=== PATIENT | male | born 1975 | race Caucasian/White ===

== ENCOUNTER 2020-12-11 18:17 | Inpatient (IN) | payer MEDICAID, OTHER ==
[~2020-12-11] VITALS: Ht 175.3 cm; Wt 87.7 kg
[2020-12-11 19:05] LABS: BASOPHILS % (AUTO) 0.9 % (0.0-2.0); EOSINOPHILS % (AUTO) 1.7 % (1.0-6.0); HEMATOCRIT 43.7 % (41-53); HEMOGLOBIN 15.4 g/dL (13.5-17.5); LYMPHOCYTES # (AUTO) 1.8 K/uL (1.0-4.8); MEAN CORPUSCULAR HEMOGLOBIN 31.5 pg (26.0-34.0); MEAN CORPUSCULAR HGB CONC 35.3 G/dL (31.0-37.0); MEAN CORPUSCULAR VOLUME 89 fL (80-100); MONOCYTES # (AUTO) 0.6 K/uL (0.1-1.0); MONOCYTES % (AUTO) 8.2 % (2.0-9.0); NEUTROPHILS % (AUTO) 65.2 % (40.0-70.0); PLATELET COUNT (AUTO) 301 K/uL (150-450); RED CELL DISTRIBUTION WIDTH 12.9 % (11.5-14.5)
[2020-12-11 19:16] LABS: ANION GAP 9 mmol/L (8-16); CALCIUM, TOTAL 9.1 mg/dL (8.8-10.5); CARBON DIOXIDE 29 mmol/L (22-29); CHLORIDE 102 mmol/L (98-107); CREATININE 1.22 mg/dL (0.60-1.30); GLOMERULAR FILTR. RATE CALC > 60 mL/min (>60); GLUCOSE,RANDOM 116 mg/dL (70-110); POTASSIUM 3.6 mmol/L (3.5-5.1); SODIUM SERUM 140 mmol/L (136-145); UREA NITROGEN, BLOOD 17 mg/dL (7-18)
[2020-12-11] MEDS ORDERED: OLAN5TAB2 PO (19:21)
[2020-12-11] MEDS ORDERED: CLON0.1T2 PO (19:21)
[2020-12-11] MEDS ORDERED: CITA10TA99 PO (19:21)
[2020-12-11] MEDS ORDERED: HYDR-3831 PO (19:21)
[2020-12-11] MEDS ORDERED: LEVO25TA9 PO (19:21)
[2020-12-11 19:22] LABS: ALANINE AMINOTRANSFERASE 35 U/L (12-78); ALBUMIN 4.3 g/dL (3.4-5.0); ALKALINE PHOSPHATASE 92 U/L (46-116); ASPARTATE AMINOTRANSFERASE 19 U/L (15-37); BILIRUBIN,TOTAL 0.5 mg/dL (0.1-1.0); TOTAL PROTEIN, SERUM 7.3 g/dL (6.4-8.2)
[2020-12-11 20:22] LABS: COVID AG,FIA SOURCE NASOPHARYNGEAL
[2020-12-11] MEDS ORDERED: ZOLPIDEM TARTRATE 10 MG TABLET PO PRN (22:45)
[2020-12-11] MEDS ORDERED: HALOPERIDOL 5 MG TABLET PO PRN (22:45)
[2020-12-12 03:00] VITALS: BP 116/88
[2020-12-12] MEDS: LORazepam 2 MG TABLET PO PRN (03:10)
[2020-12-12] MEDS ORDERED: PNEUMOCOCCAL VACCINE POLYVALENT 0.5 ML VIAL [PPSV23] IM. ONE (04:30)
[2020-12-12 07:47] LABS: CHOL/HDL RATIO 5.3 (4.2-7.3)
[2020-12-12 08:47] VITALS: BP 126/83
[2020-12-12] MEDS ORDERED: MAGNESIUM HYDROXIDE SUSPENSION 30 ML UDCUP PO PRN (10:45)
[2020-12-12] MEDS ORDERED: ONDANSETRON HCL 4 MG TABLET PO PRN (10:45)
[2020-12-12] MEDS ORDERED: GuaiFENesin/D-METHORPHAN [SUGAR-FREE] 200-20MG/10 ML SYRUP UDCUP PO PRN (10:45)
[2020-12-12] MEDS ORDERED: IBUPROFEN 400 MG TABLET PO PRN (10:45)
[2020-12-12] MEDS ORDERED: LOPERAMIDE HCL 2 MG CAPSULE PO PRN (10:45)
[2020-12-12] MEDS ORDERED: ALBUTEROL SULFATE HFA 90 MCG/PUFF 8 GM INHALER IH PRN (10:45)
[2020-12-12] MEDS ORDERED: ACETAMINOPHEN 325 MG TABLET PO PRN (10:45)
[2020-12-12] MEDS ORDERED: NICOTINE 14 MG/24 HOUR PATCH TD PRN (10:45)
[2020-12-12] MEDS ORDERED: PETROLATUM,WHITE 28 GM JELLY TP PRN (10:45)
[2020-12-12] MEDS ORDERED: DOCUSATE SODIUM 100 MG CAPSULE PO PRN (10:45)
[2020-12-12] MEDS ORDERED: CloNIDine HCL 0.1 MG TABLET PO PRN (10:45)
[2020-12-12 16:19] VITALS: BP 133/88
[2020-12-12] MEDS: OLANZapine 5 MG TABLET PO SCH (17:10)
[2020-12-13 00:59] VITALS: BP 125/78
[2020-12-13] MEDS: OLANZapine 5 MG TABLET PO SCH ×2 (08:33→16:27)
[2020-12-13] MEDS: CITALOPRAM HYDROBROMIDE 20 MG TABLET PO SCH (08:33)
[2020-12-13 09:02] VITALS: BP 122/78
[2020-12-13 16:26] VITALS: BP 117/69
[2020-12-14 05:22] VITALS: BP 133/90
[2020-12-14 08:30] VITALS: BP 128/76
[2020-12-14] MEDS: CITALOPRAM HYDROBROMIDE 20 MG TABLET PO SCH (09:13)
[2020-12-14] MEDS: OLANZapine 5 MG TABLET PO SCH ×2 (09:13→16:49)
[2020-12-14 16:10] VITALS: BP 139/71
[2020-12-15 06:03] VITALS: BP 141/98
[2020-12-15 08:56] VITALS: BP 140/81
[2020-12-15] MEDS: OLANZapine 5 MG TABLET PO SCH ×2 (09:06→17:00)
[2020-12-15] MEDS: CITALOPRAM HYDROBROMIDE 20 MG TABLET PO SCH (09:06)
[2020-12-15 16:19] VITALS: BP 135/83
[2020-12-16 00:31] VITALS: BP 128/80
[2020-12-16 09:01] VITALS: BP 140/80
[2020-12-16] MEDS: OLANZapine 5 MG TABLET PO SCH ×2 (09:06→16:34)
[2020-12-16] MEDS: CITALOPRAM HYDROBROMIDE 20 MG TABLET PO SCH (09:06)
[2020-12-16 16:22] VITALS: BP 140/83
[2020-12-17 00:26] VITALS: BP 128/73
[2020-12-17 07:16] LABS: COVID AG,FIA SOURCE NASOPHARYNGEAL
[2020-12-17 08:23] VITALS: BP 136/98
[2020-12-17] MEDS: OLANZapine 5 MG TABLET PO SCH ×2 (08:24→15:55)
[2020-12-17] MEDS: CITALOPRAM HYDROBROMIDE 20 MG TABLET PO SCH (08:24)
[2020-12-17 16:27] VITALS: BP 146/87
[2020-12-17] MEDS: LORazepam 2 MG TABLET PO PRN (19:06)
[2020-12-17] MEDS: MAG HYDROX/AL HYDROX/SIMETH ES 30 ML SUSPENSION UDCUP PO PRN (21:48)
[2020-12-18 06:44] VITALS: BP 113/76
[2020-12-18 08:13] VITALS: BP 130/81
[2020-12-18] MEDS: OLANZapine 5 MG TABLET PO SCH ×2 (08:21→16:16)
[2020-12-18] MEDS: CITALOPRAM HYDROBROMIDE 20 MG TABLET PO SCH (08:21)
[2020-12-18] MEDS ORDERED: CITA-144 PO (14:06)
[2020-12-18] MEDS ORDERED: HYD50 PO (14:06)
[2020-12-18 16:19] VITALS: BP 130/64
[2020-12-18] MEDS: LORazepam 2 MG TABLET PO PRN (17:40)
[2020-12-19 00:42] VITALS: BP 117/62
[2020-12-19 08:12] VITALS: BP 123/74
[2020-12-19] MEDS: OLANZapine 5 MG TABLET PO SCH ×2 (08:15→16:35)
[2020-12-19] MEDS: FOLIC ACID 1 MG TABLET PO SCH (08:15)
[2020-12-19] MEDS: CITALOPRAM HYDROBROMIDE 20 MG TABLET PO SCH (08:15)
[2020-12-19] MEDS: THIAMINE 100 MG TABLET PO SCH (08:15)
[2020-12-19 16:18] VITALS: BP 137/77
[2020-12-19] MEDS: LORazepam 2 MG TABLET PO PRN (17:20)
[2020-12-19] MEDS: MAG HYDROX/AL HYDROX/SIMETH ES 30 ML SUSPENSION UDCUP PO PRN (21:18)
[2020-12-20 01:04] VITALS: BP 124/77
[2020-12-20 08:11] VITALS: BP 127/80
[2020-12-20] MEDS: FOLIC ACID 1 MG TABLET PO SCH (09:14)
[2020-12-20] MEDS: CITALOPRAM HYDROBROMIDE 20 MG TABLET PO SCH (09:14)
[2020-12-20] MEDS: THIAMINE 100 MG TABLET PO SCH (09:14)
[2020-12-20] MEDS: OLANZapine 5 MG TABLET PO SCH ×2 (09:14→16:27)
[2020-12-20 16:27] VITALS: BP 132/73
[2020-12-20] MEDS: LORazepam 2 MG TABLET PO PRN (18:35)
[2020-12-20] MEDS: MAG HYDROX/AL HYDROX/SIMETH ES 30 ML SUSPENSION UDCUP PO PRN (21:52)
[2020-12-21 01:21] VITALS: BP 146/87
[2020-12-21 05:21] VITALS: BP 148/83
[2020-12-21 08:31] VITALS: BP 136/88
[2020-12-21 08:32] LABS: FREE T4 (FREE THYROXINE) 0.67 ng/dL (0.76-1.46); THYROID STIMULATING HORMONE 9.73 uIU/mL (0.36-3.74)
[2020-12-21] MEDS: CITALOPRAM HYDROBROMIDE 20 MG TABLET PO SCH (08:43)
[2020-12-21] MEDS: OLANZapine 5 MG TABLET PO SCH ×2 (08:43→16:41)
[2020-12-21] MEDS: FOLIC ACID 1 MG TABLET PO SCH (08:43)
[2020-12-21] MEDS: THIAMINE 100 MG TABLET PO SCH (08:43)
[2020-12-21 16:10] VITALS: BP 113/65
[2020-12-21] MEDS: LORazepam 2 MG TABLET PO PRN ×2 (16:41→22:13)
[2020-12-21] MEDS: MAG HYDROX/AL HYDROX/SIMETH ES 30 ML SUSPENSION UDCUP PO PRN (23:06)
[2020-12-22 00:55] VITALS: BP 137/91
[2020-12-22 08:22] VITALS: BP 140/79
[2020-12-22] MEDS: THIAMINE 100 MG TABLET PO SCH (09:08)
[2020-12-22] MEDS: CITALOPRAM HYDROBROMIDE 20 MG TABLET PO SCH (09:08)
[2020-12-22] MEDS: OLANZapine 5 MG TABLET PO SCH ×2 (09:08→16:25)
[2020-12-22] MEDS: FOLIC ACID 1 MG TABLET PO SCH (09:08)
[2020-12-22 16:09] VITALS: BP 136/83
[2020-12-22] MEDS ORDERED: ZOLPIDEM TARTRATE 10 MG TABLET PO PRN (17:15)
[2020-12-22] MEDS: LORazepam 2 MG TABLET PO PRN (17:25)
[2020-12-23 00:54] VITALS: BP 128/85
[2020-12-23] MEDS ORDERED: LEVOTHYROXINE SODIUM 75 MCG TABLET PO SCH (06:30)
[2020-12-23 08:06] LABS: COVID AG,FIA SOURCE NASOPHARYNGEAL
[2020-12-23] MEDS: OLANZapine 5 MG TABLET PO SCH (08:23)
[2020-12-23] MEDS: CITALOPRAM HYDROBROMIDE 20 MG TABLET PO SCH (08:24)
[2020-12-23] MEDS: FOLIC ACID 1 MG TABLET PO SCH (08:24)
[2020-12-23] MEDS: THIAMINE 100 MG TABLET PO SCH (08:24)
[2020-12-23 09:17] VITALS: BP 140/80
[2020-12-23] MEDS: LORazepam 2 MG TABLET PO PRN (12:18)
[2020-12-23] MEDS ORDERED: LEVO75 PO (12:30)
[2020-12-23] MEDS ORDERED: OLAN5TAB2 PO (12:30)
== END 2020-12-23 14:04 | disposition home or self-care (01) | DRG 750 ==
LOC: EMS 18:21 → B2S 23:00
PROVIDERS: ADMIT Psychiatry & Neurology Psychiatry; ATTEND Psychiatry & Neurology Psychiatry
DX: F20.9 Schizophrenia, unspecified (principal); R45.851 Suicidal ideations; Z91.14 Patient's other noncompliance with medication regimen; Z91.19 Patient's noncompliance with other medical treatment and regimen; E03.9 Hypothyroidism, unspecified; F19.10 Other psychoactive substance abuse, uncomplicated; I10 Essential (primary) hypertension; F41.0 Panic disorder [episodic paroxysmal anxiety]; F15.90 Other stimulant use, unspecified, uncomplicated; F43.10 Post-traumatic stress disorder, unspecified; R73.9 Hyperglycemia, unspecified; Z91.5 Personal history of self-harm; F42.9 Obsessive-compulsive disorder, unspecified; F17.210 Nicotine dependence, cigarettes, uncomplicated; Z20.822 Contact with and (suspected) exposure to COVID-19
CPT/HCPCS: 80053; 80061; 84439; 84443; 85025; 87426; 99285; G0480

== ENCOUNTER 2021-01-25 15:00 | Inpatient (IN) | payer MEDICAID, OTHER ==
[~2021-01-25] VITALS: Ht 175.3 cm; Wt 90.0 kg
[~2021-01-25 15:00] MED LIST: CITA-144 PO; LEVO75 PO; OLAN5TAB52 PO
[2021-01-25 16:32] LABS: BASOPHILS % (AUTO) 0.6 % (0.0-2.0); EOSINOPHILS % (AUTO) 2.8 % (1.0-6.0); HEMATOCRIT 43.3 % (41-53); LYMPHOCYTES # (AUTO) 1.9 K/uL (1.0-4.8); LYMPHOCYTES % (AUTO) 19.8 % (22.0-44.0); MEAN CORPUSCULAR HEMOGLOBIN 30.7 pg (26.0-34.0); MEAN CORPUSCULAR HGB CONC 34.6 G/dL (31.0-37.0); MEAN CORPUSCULAR VOLUME 89 fL (80-100); MONOCYTES # (AUTO) 0.8 K/uL (0.1-1.0); MONOCYTES % (AUTO) 7.9 % (2.0-9.0); NEUTROPHILS # (AUTO) 6.5 K/uL (1.8-7.7); NEUTROPHILS % (AUTO) 68.9 % (40.0-70.0); PLATELET COUNT (AUTO) 415 K/uL (150-450); RED BLOOD CELL COUNT(AUTO) 4.88 MIL/uL (4.50-5.90); RED CELL DISTRIBUTION WIDTH 12.9 % (11.5-14.5)
[2021-01-25 16:42] LABS: CALCIUM, TOTAL 8.8 mg/dL (8.8-10.5); CARBON DIOXIDE 28 mmol/L (22-29); CREATININE 0.94 mg/dL (0.60-1.30); GLOMERULAR FILTR. RATE CALC > 60 mL/min (>60); GLUCOSE,RANDOM 106 mg/dL (70-110); UREA NITROGEN, BLOOD 12 mg/dL (7-18)
[2021-01-25 16:48] LABS: ALANINE AMINOTRANSFERASE 35 U/L (12-78); ALBUMIN 3.6 g/dL (3.4-5.0); ALKALINE PHOSPHATASE 95 U/L (46-116); ASPARTATE AMINOTRANSFERASE 16 U/L (15-37); BILIRUBIN,TOTAL 0.2 mg/dL (0.1-1.0); TOTAL PROTEIN, SERUM 7.6 g/dL (6.4-8.2)
[2021-01-25 16:49] LABS: ACETAMINOPHEN < 2 mcg/mL (10-30)
[2021-01-25 16:51] LABS: ANION GAP 8 mmol/L (8-16); CHLORIDE 104 mmol/L (98-107); SODIUM SERUM 140 mmol/L (136-145)
[2021-01-25 17:01] LABS: SALICYLATE < 2.8 mg/dL (2.8-20.0)
[2021-01-25 18:48] LABS: APPEARANCE,URINE CLEAR (CLEAR); BILIRUBIN,URINE NEGATIVE (NEGATIVE); GLUCOSE, URINE (UA) NEGATIVE (NEGATIVE); KETONES,URINE NEGATIVE (NEGATIVE); LEUKOCYTE ESTERASE ,URINE NEGATIVE (NEGATIVE); NITRATE,URINE NEGATIVE (NEGATIVE); OCCULT BLOOD,URINE NEGATIVE (NEGATIVE); PH,URINE 5.5 (5.0-8.0); PROTEIN,URINE NEGATIVE (NEGATIVE); UROBILINOGEN,URINE 0.2 mg/dL (<=1.0)
[2021-01-25 18:56] LABS: AMPHET/METH SCREEN,URINE POSITIVE (NEGATIVE); BARBITURATE SCREEN, URINE NEGATIVE (NEGATIVE); BENZODIAZEPINES SCREEN,URINE NEGATIVE (NEGATIVE); CANNABINOID SCREEN,URINE NEGATIVE (NEGATIVE); COCAINE SCREEN,URINE NEGATIVE (NEGATIVE); METHADONE SCREEN, URINE NEGATIVE (NEGATIVE); OPIATE SCREEN,URINE NEGATIVE (NEGATIVE)
[2021-01-25 18:57] LABS: PHENCYCLIDINE SCREEN,URINE NEGATIVE (NEGATIVE)
[2021-01-25] MEDS ORDERED: HALOPERIDOL 5 MG TABLET PO PRN (19:15)
[2021-01-25 19:49] LABS: BACTERIA,URINE None Seen /HPF (None Seen); RBC,URINE None Seen /HPF (0-2); WBC,URINE None Seen /HPF (0-5)
[2021-01-25 20:27] LABS: COVID AG,FIA SOURCE NASOPHARYNGEAL
[2021-01-25] MEDS: ZOLPIDEM TARTRATE 10 MG TABLET PO PRN (22:11)
[2021-01-25] MEDS ORDERED: PNEUMOCOCCAL VACCINE POLYVALENT 0.5 ML VIAL [PPSV23] IM. ONE (22:30)
[2021-01-25 23:38] VITALS: BP 135/80
[2021-01-26 00:59] VITALS: BP 122/78
[2021-01-26] MEDS: LORazepam 2 MG TABLET PO PRN (05:40)
[2021-01-26 08:08] VITALS: BP 106/65
[2021-01-26 08:09] LABS: CHOL/HDL RATIO 4.8 (4.2-7.3)
[2021-01-26] MEDS ORDERED: IBUPROFEN 400 MG TABLET PO PRN (09:00)
[2021-01-26] MEDS ORDERED: CloNIDine HCL 0.1 MG TABLET PO PRN (09:00)
[2021-01-26] MEDS ORDERED: NICOTINE 14 MG/24 HOUR PATCH TD PRN (09:00)
[2021-01-26] MEDS ORDERED: PETROLATUM,WHITE 28 GM JELLY TP PRN (09:00)
[2021-01-26] MEDS ORDERED: DOCUSATE SODIUM 100 MG CAPSULE PO PRN (09:00)
[2021-01-26] MEDS ORDERED: LOPERAMIDE HCL 2 MG CAPSULE PO PRN (09:00)
[2021-01-26] MEDS ORDERED: ACETAMINOPHEN 325 MG TABLET PO PRN (09:00)
[2021-01-26] MEDS ORDERED: ALBUTEROL SULFATE HFA 90 MCG/PUFF 8 GM INHALER IH PRN (09:00)
[2021-01-26] MEDS ORDERED: ONDANSETRON HCL 4 MG TABLET PO PRN (09:00)
[2021-01-26] MEDS ORDERED: GuaiFENesin/D-METHORPHAN [SUGAR-FREE] 200-20MG/10 ML SYRUP UDCUP PO PRN (09:00)
[2021-01-26] MEDS ORDERED: MAGNESIUM HYDROXIDE SUSPENSION 30 ML UDCUP PO PRN (09:00)
[2021-01-26] MEDS: CITALOPRAM HYDROBROMIDE 20 MG TABLET PO SCH (13:34)
[2021-01-26 16:20] VITALS: BP 127/73
[2021-01-26] MEDS: OLANZapine 5 MG TABLET PO SCH (16:49)
[2021-01-27 00:14] VITALS: BP 125/68
[2021-01-27] MEDS: LEVOTHYROXINE SODIUM 75 MCG TABLET PO SCH (06:52)
[2021-01-27] MEDS: CITALOPRAM HYDROBROMIDE 20 MG TABLET PO SCH (08:27)
[2021-01-27] MEDS: OLANZapine 5 MG TABLET PO SCH ×2 (08:27→17:02)
[2021-01-27 09:00] VITALS: BP 127/78
[2021-01-27 16:07] VITALS: BP 130/80
[2021-01-28 00:14] VITALS: BP 123/75
[2021-01-28] MEDS: LEVOTHYROXINE SODIUM 75 MCG TABLET PO SCH (06:27)
[2021-01-28] MEDS: OLANZapine 5 MG TABLET PO SCH ×2 (08:20→16:19)
[2021-01-28] MEDS: CITALOPRAM HYDROBROMIDE 20 MG TABLET PO SCH (08:20)
[2021-01-28 08:36] VITALS: BP 133/80
[2021-01-28 16:34] VITALS: BP 122/84
[2021-01-28] MEDS: LORazepam 2 MG TABLET PO PRN ×2 (16:39→21:27)
[2021-01-28] MEDS: MAG HYDROX/AL HYDROX/SIMETH ES 30 ML SUSPENSION UDCUP PO PRN (21:24)
[2021-01-29 01:11] VITALS: BP 111/64
[2021-01-29] MEDS: MAG HYDROX/AL HYDROX/SIMETH ES 30 ML SUSPENSION UDCUP PO PRN ×2 (04:34→20:48)
[2021-01-29] MEDS: LEVOTHYROXINE SODIUM 75 MCG TABLET PO SCH ×2 (06:46→08:50)
[2021-01-29 08:03] VITALS: BP 108/67
[2021-01-29 08:08] LABS: FREE T4 (FREE THYROXINE) 0.91 ng/dL (0.76-1.46); THYROID STIMULATING HORMONE 7.76 uIU/mL (0.36-3.74)
[2021-01-29 08:12] LABS: HEMOGLOBIN A1C 5.3 % (3.8-5.6)
[2021-01-29] MEDS: CITALOPRAM HYDROBROMIDE 20 MG TABLET PO SCH (08:50)
[2021-01-29] MEDS: OLANZapine 5 MG TABLET PO SCH ×2 (08:50→16:13)
[2021-01-29] MEDS: LORazepam 2 MG TABLET PO PRN ×2 (16:13→20:48)
[2021-01-29 16:19] VITALS: BP 134/86
[2021-01-30 03:41] VITALS: BP 124/82
[2021-01-30 07:35] LABS: COVID AG,FIA SOURCE NASOPHARYNGEAL
[2021-01-30] MEDS: OLANZapine 5 MG TABLET PO SCH ×2 (08:21→16:12)
[2021-01-30] MEDS: CITALOPRAM HYDROBROMIDE 20 MG TABLET PO SCH (08:22)
[2021-01-30 08:31] VITALS: BP 130/78
[2021-01-30 16:03] VITALS: BP 141/83
[2021-01-30] MEDS: LORazepam 2 MG TABLET PO PRN (16:12)
[2021-01-30] MEDS: ZOLPIDEM TARTRATE 10 MG TABLET PO PRN (20:36)
[2021-01-30] MEDS: MAG HYDROX/AL HYDROX/SIMETH ES 30 ML SUSPENSION UDCUP PO PRN (23:00)
[2021-01-31 01:05] VITALS: BP 129/82
[2021-01-31] MEDS: LEVOTHYROXINE SODIUM 75 MCG TABLET PO SCH (06:36)
[2021-01-31] MEDS: OLANZapine 5 MG TABLET PO SCH ×2 (08:09→18:07)
[2021-01-31 08:20] VITALS: BP 102/51
[2021-01-31] MEDS ORDERED: CITALOPRAM HYDROBROMIDE 20 MG TABLET PO SCH (09:00)
[2021-01-31 16:04] VITALS: BP 132/64
[2021-01-31] MEDS: LORazepam 2 MG TABLET PO PRN (20:05)
[2021-02-01 01:30] VITALS: BP 108/62
[2021-02-01] MEDS ORDERED: CITA-144 PO (02:03)
[2021-02-01] MEDS: LEVOTHYROXINE SODIUM 75 MCG TABLET PO SCH (07:03)
[2021-02-01] MEDS ORDERED: OLANZapine 5 MG TABLET PO SCH (09:00)
[2021-02-01] MEDS ORDERED: CITALOPRAM HYDROBROMIDE 20 MG TABLET PO SCH ×2 (09:00)
== END 2021-02-01 07:00 | disposition home or self-care (01) | DRG 754 ==
LOC: EMS 15:03 → B2S 19:05
PROVIDERS: ADMIT Psychiatry & Neurology Psychiatry; ATTEND Psychiatry & Neurology Psychiatry
DX: F32.9 Major depressive disorder, single episode, unspecified (principal); R45.851 Suicidal ideations; Z91.14 Patient's other noncompliance with medication regimen; E03.9 Hypothyroidism, unspecified; F15.10 Other stimulant abuse, uncomplicated; F41.1 Generalized anxiety disorder; F42.9 Obsessive-compulsive disorder, unspecified; F43.10 Post-traumatic stress disorder, unspecified; I10 Essential (primary) hypertension; Z87.891 Personal history of nicotine dependence; Z91.5 Personal history of self-harm; Z20.822 Contact with and (suspected) exposure to COVID-19; Z28.21 Immunization not carried out because of patient refusal
CPT/HCPCS: 80053; 80061; 81001; 83036; 84439; 84443; 85025; 93005; 99285; G0480; G0481

== ENCOUNTER 2021-01-31 13:16 | Emergency (ER) | payer MEDICAID, OTHER ==
[~2021-01-31] VITALS: Ht 175.3 cm; Wt 90.0 kg
[2021-01-31 17:43] VITALS: BP 128/77
[2021-02-01] MEDS ORDERED: CITA-144 PO (02:03)
== END 2021-01-31 17:44 | disposition home or self-care (01) ==
LOC: EMS 14:15
DX: F41.9 Anxiety disorder, unspecified (principal); F31.9 Bipolar disorder, unspecified; F17.210 Nicotine dependence, cigarettes, uncomplicated; F14.90 Cocaine use, unspecified, uncomplicated; F12.90 Cannabis use, unspecified, uncomplicated; F19.90 Other psychoactive substance use, unspecified, uncomplicated; Z51.89 Encounter for other specified aftercare
CPT/HCPCS: 93005; 99283